=== PATIENT | female | born 1950 ===

== ENCOUNTER → 2022-06-03 | Outpatient (CLI) | payer MEDICARE | END | disposition home or self-care (01) | LOC: LAB 17:10 → LAB SHORT 17:10 | PROVIDERS: Physician Assistant | DX: M25.50 Pain in unspecified joint (principal) | CPT/HCPCS: 85651; 86140; 86430 ==

== ENCOUNTER → 2024-11-23 | Outpatient (CLI) | payer MEDICARE | LOC: LAB 07:24 → LAB SHORT 07:24 | DX: D48.5 Neoplasm of uncertain behavior of skin (principal) | CPT/HCPCS: 88312 ==